=== PATIENT | male | born 1985 | race Two or more races ===

== ENCOUNTER 2018-07-02 05:51 | Emergency (ER) | payer SELFPAY ==
[~2018-07-02] VITALS: Ht 172.7 cm; Wt 70.5 kg
[2018-07-02 05:54] VITALS: BP 161/97
[2018-07-02] MEDS ORDERED: ZIPRASIDONE 20MG CAPSULE ONE (06:08)
[2018-07-02] MEDS ORDERED: LORazepam 1MG TABLET ONE (06:09)
[2018-07-02] MEDS ORDERED: LORazepam 1MG TABLET PO ONE ×2 (06:30)
[2018-07-02] MEDS ORDERED: ZIPRASIDONE 20MG CAPSULE PO ONE (09:00)
== END 2018-07-02 06:29 | disposition home or self-care (01) ==
LOC: ED 06:26
DX: F28 Other psychotic disorder not due to a substance or known physiological condition (principal); F22 Delusional disorders
CPT/HCPCS: 99284